=== PATIENT | female | born 1995 | race Caucasian/White ===

== ENCOUNTER 2020-12-02 20:34 | Emergency (ER) | payer BC ==
[~2020-12-02] VITALS: Ht 154.9 cm; Wt 43.1 kg
[2020-12-02] MEDS ORDERED: ADDERALL 20 MG20 MG PO (20:53)
[2020-12-02] MEDS ORDERED: MINIPRESS1 MG PO (20:54)
[2020-12-02 21:39] VITALS: BP 121/70
== END 2020-12-02 21:40 | disposition home or self-care (01) ==
LOC: M.ERS 20:34
DX: S61.213A Laceration without foreign body of left middle finger without damage to nail, initial encounter (principal); Z79.899 Other long term (current) drug therapy; W45.8XXA Other foreign body or object entering through skin, initial encounter; Y93.89 Activity, other specified; Y92.89 Other specified places as the place of occurrence of the external cause; Y99.8 Other external cause status